=== PATIENT | male | born 1990 ===

== ENCOUNTER 2016-09-30 02:27 | Emergency (ER) | payer OTHER ==
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
[2016-09-30 04:09] VITALS: BP 144/80; PULSE 85; RESP 17; TEMP 98.1
[2016-09-30 04:11] VITALS: O2SAT 98
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
== END 2016-09-30 04:17 | disposition home or self-care (01) ==
LOC: C.ER 02:27
DX: S00.33XA Contusion of nose, initial encounter (principal); W50.0XXA Accidental hit or strike by another person, initial encounter; Y93.89 Activity, other specified; Y92.9 Unspecified place or not applicable